=== PATIENT | female | born 1990 ===

== ENCOUNTER 2020-08-27 18:26 | Inpatient (IN) | payer MEDICAID ==
[~2020-08-27] VITALS: Ht 157.5 cm; Wt 76.8 kg
--- NOTE | 2020-08-27 18:33 | NUR ---
THIS IS A 29 YEAR OLD FEMALE WHO WAS A CODE 250. FRIEND PICKED UP PATIENT DUE TO "NO FEELING WELL AND PASSING OUT". PT PLACED ON [employer] PROVIDER SINUS, AT 120, A&0X4, CONTINOUS SP02 AND CYCLE VS. PT IS SHAKING, C/O OF LEYVA, AND DIZZINESS PT HAS A HX OF LEUKEMIA.
[2020-08-27] MEDS ORDERED: VENL37.57 PO (18:38)
[2020-08-27] MEDS ORDERED: LORA-59 PO (18:39)
[2020-08-27] MEDS ORDERED: SUMA50TA4 PO (18:39)
--- NOTE | 2020-08-27 18:47 | NUR ---
REPORT TO A[place]IN RN, PLAN OF CARE DISCUSSED
[2020-08-27 18:57] LABS: BASOPHILS % (AUTO) 1 % (0-1); EOSINOPHILS % (AUTO) 1 % (1-7); LYMPHOCYTES % (AUTO) 37 % (22-44); MEAN CORPUSCULAR HEMOGLOBIN 22.1 pg (27.0-34.8); MEAN CORPUSCULAR HGB CONC 32.2 g/dL (32.4-35.8); MEAN PLATELET VOLUME 8.7 fL (7.4-10.4); MONOCYTES % (AUTO) 7 % (2-9); NEUTROPHILS % (AUTO) 55 % (42-75); PLATELET COUNT 290 x10^3/uL (130-400); RED CELL DISTRIBUTION WIDTH 14.2 % (9.6-15.2)
[2020-08-27] MEDS ORDERED: SODIUM CHLORIDE FLUSH 10ML SYR IVF ONE (19:00)
[2020-08-27] MEDS ORDERED: SODIUM CHLORIDE 0.9% 1,000ML IVBOLUS ONE (19:00)
--- NOTE | 2020-08-27 19:03 | NUR ---
pt to ct scan without incident. awake and alert and no pain at this time.
[2020-08-27 19:05] LABS: MD NO
[2020-08-27 19:08] LABS: ALANINE AMINOTRANSFERASE 24 U/L (12-78); ALBUMIN 4.4 g/dL (3.4-5.0); ANION GAP 10 mmol/L (5-15); CALCIUM 8.5 mg/dL (8.5-10.1); CHLORIDE 109 mmol/L (98-107); CREATININE 0.99 mg/dL (0.55-1.02)
[2020-08-27 19:10] LABS: ALKALINE PHOSPHATASE 50 U/L (45-117); BILIRUBIN,TOTAL 0.3 mg/dL (0.2-1.0); TOTAL PROTEIN 8.1 g/dL (6.4-8.2)
--- NOTE | 2020-08-27 19:44 | NUR ---
REPORT RECIEVED FROM JORGE AVILA. PT RESTING IN BED, AWAITING SCAN AND LAB RESULTS
[2020-08-27 19:46] LABS: MICROSCOPIC NOT IND
[2020-08-27] MEDS ORDERED: MECLIZINE CHEWABLE 25 MG TAB PO ONE (20:00)
[2020-08-27] MEDS ORDERED: MECLIZINE CHEWABLE 25 MG TAB ONE (20:18)
[2020-08-27 21:35] LABS: TROPONIN I < 0.015 ng/mL (0.000-0.045)
[2020-08-27] MEDS: LACTATED RINGERS 1,000 ML IV SCH (22:00)
[2020-08-27] MEDS ORDERED: MELATONIN 5 MG TABLET PO PRN (22:00)
[2020-08-27] MEDS ORDERED: POTASSIUM CHLORIDE 20 MEQ TAB.ER.PRT PO ONE (22:00)
[2020-08-27] MEDS ORDERED: POLYETHYLENE GLYCOL 17 GM PACKET PO PRN (22:00)
[2020-08-27] MEDS ORDERED: BISACODYL 10 MG SUPP PR PRN (22:00)
[2020-08-27] MEDS ORDERED: hydrALAzine 20 MG/ML, 1ML IVPush PRN (22:00)
[2020-08-27] MEDS ORDERED: PROMETHAZINE 25 MG/ML, 1ML IM PRN (22:00)
--- NOTE | 2020-08-27 22:05 | NUR ---
REPORT GIVEN TO JORGE DELATORRE
[2020-08-27 22:22] LABS: IRON LEVEL 75 mcg/dL (50-170)
[2020-08-27 22:23] LABS: TOTAL IRON BINDING CAPACITY 277 mcg/dL (250-450)
[2020-08-27 22:41] LABS: % IRON SATURATION 27 % (20-55)
[2020-08-27 23:00] VITALS: BP 122/76
[2020-08-27 23:05] VITALS: BP 116/78
[2020-08-27 23:10] VITALS: BP 110/72
[2020-08-27] MEDS: ONDANSETRON 2MG/ML, 2ML IVPush PRN (23:42)
[2020-08-27] MEDS: ACETAMINOPHEN 325 MG TABLET PO PRN (23:42)
[2020-08-27 23:48] LABS: HCG UR SG 1.009 (1.003-1.030)
[2020-08-27 23:51] LABS: AMPHETAMINE SCREEN, URINE Negative (Negative); BARBITURATE SCREEN, URINE Negative (Negative); BENZODIAZEPINE SCREEN, URINE Negative (Negative); CANNABINOID SCREEN, URINE Positive (Negative); COCAINE SCREEN, URINE Negative (Negative); METHADONE SCREEN, URINE Negative (Negative); OPIATE SCREEN, URINE Negative (Negative)
[2020-08-28 01:03] LABS: TROPONIN I < 0.015 ng/mL (0.000-0.045)
[2020-08-28 01:39] VITALS: BP 100/66
[2020-08-28 01:40] VITALS: BP 100/67
[2020-08-28 01:41] VITALS: BP 93/66
[2020-08-28 04:43] LABS: BASOPHILS % (AUTO) 1 % (0-1); EOSINOPHILS % (AUTO) 2 % (1-7); LYMPHOCYTES % (AUTO) 45 % (22-44); MEAN CORPUSCULAR HEMOGLOBIN 22.1 pg (27.0-34.8); MEAN CORPUSCULAR HGB CONC 32.3 g/dL (32.4-35.8); MEAN PLATELET VOLUME 8.8 fL (7.4-10.4); MONOCYTES % (AUTO) 8 % (2-9); NEUTROPHILS % (AUTO) 45 % (42-75); PLATELET COUNT 248 x10^3/uL (130-400); RED BLOOD COUNT 5.07 x10^6/uL (3.82-5.3); RED CELL DISTRIBUTION WIDTH 14.2 % (9.6-15.2)
[2020-08-28 04:44] LABS: MD NO
[2020-08-28 04:54] LABS: ANION GAP 6 mmol/L (5-15); CALCIUM 7.9 mg/dL (8.5-10.1); CHLORIDE 113 mmol/L (98-107)
[2020-08-28 05:06] LABS: CREATININE 0.85 mg/dL (0.55-1.02); TROPONIN I < 0.015 ng/mL (0.000-0.045)
[2020-08-28] MEDS ORDERED: ONDA4TAB7 PO (07:54)
[2020-08-28] MEDS ORDERED: MECL-101 PO (07:54)
[2020-08-28] MEDS: LACTATED RINGERS 1,000 ML IV SCH (08:00)
[2020-08-28 08:21] VITALS: BP 112/78
[2020-08-28] MEDS ORDERED: SENNA/DOCUSATE TABLET PO SCH (09:00)
[2020-08-28] MEDS ORDERED: MECLIZINE CHEWABLE 25 MG TAB PO ONE (10:30)
[2020-08-28] MEDS: ACETAMINOPHEN 325 MG TABLET PO PRN (10:46)
[2020-08-28] MEDS: ONDANSETRON 2MG/ML, 2ML IVPush PRN (11:37)
== END 2020-08-28 13:33 | disposition home or self-care (01) | DRG 204 ==
LOC: ED 21:15 → EDIP 21:31 → 4WST 08-28 00:25
PROVIDERS: ADMIT Family Medicine; ATTEND Family Medicine
DX: I95.1 Orthostatic hypotension (principal); G43.109 Migraine with aura, not intractable, without status migrainosus; H55.09 Other forms of nystagmus; R42 Dizziness and giddiness; F12.90 Cannabis use, unspecified, uncomplicated; J30.9 Allergic rhinitis, unspecified; Z92.21 Personal history of antineoplastic chemotherapy; Z85.6 Personal history of leukemia
CPT/HCPCS: 36415; 70450; 71045; 80048; 80053; 80307; 81003; 81025; 83540; 83550; 83605; 83735; 84443; 84484; 85025; 87040; 93005; 99285; J2405; J7030; J7120